=== PATIENT | male | born 1985 | race Caucasian/White ===

== ENCOUNTER 2018-08-29 13:29 | Inpatient (IN) ==
[2018-08-29 14:29] LABS: Albumin 4.4 g/dL (3.5-5.7); Albumin/Globulin Ratio 1.6 (1.1-2.2); Bilirubin,Indirect 0.2 mg/dL (0.0-1.2); Bilirubin,Total 0.2 mg/dL (0.3-1.0); Globulin 2.7 g/dL (2.4-3.5); Total Protein 7.1 g/dL (6.4-8.9)
[2018-08-29 14:30] LABS: Hematocrit 44.5 % (37.5-50.1); Immature Granulocytes % 0.5 % (0-4); Lymphocytes % 8.5 %; Mean Corpuscular HGB Conc 33.7 g/dL (31.6-35.5); Mean Corpuscular Hemoglobin 32.2 pg (28.0-33.3); Mean Corpuscular Volume 95.5 fL (83.0-100.0); Monocytes % 4.5 %; Platelet Count 183 K/mcL (140-400); Red Blood Count 4.66 M/mcL (4.19-5.50); Red Cell Distribution Width 13.8 % (11.5-14.5); Segmented Neutrophils % 85.6 %
[2018-08-29 14:31] LABS: Acetaminophen < 10 mcg/mL (10-20); BUN/Creatinine Ratio 17 (6-26); Basophils % 0.2 %; Blood Urea Nitrogen 14 mg/dL (6-20); Calcium 8.9 mg/dL (8.6-10.3); Carbon Dioxide 28 mEq/L (23-29); Chloride 105 mEq/L (98-107); Eosinophils # 0.1 K/mcL (0.0-0.6); Eosinophils % 0.7 %; Ethanol < 10 mg/dL (Less than 10); Glucose 133 mg/dL (70-105); Lymphocytes # 1.2 K/mcL (0.6-4.6); Monocytes # 0.6 K/mcL (0.0-1.3); Neutrophils # 11.8 K/mcL (1.6-8.9); Osmolality,Calculated 294 (280-300); Potassium 3.6 mEq/L (3.5-5.1); Salicylate < 2.5 mg/dL (15.0-30.0); Sodium 141 mEq/L (136-145); eGFR For Non-African Americans > 60 (> 60)
--- NOTE | 2018-08-29 15:05 | Emergency Department Note ---
Disposition Clinical Impression: Suicidal ideation Disposition: Admitted As Inpatient Condition: Good General Adult HPI - General Chief complaint: ED Overdose Stated complaint: OD/SI Time Seen by Provider: 08/29/18 13:45 Source: EMS Limitations: no limitations - History of Present Illness HPI Narrative: Patient is a 33-year-old gentleman who presents to the emergency department with chief complaint of opiate overdose and suicidal ideation. Patient reports that he has had prior history of opiate abuse and has been stressed out with life and now wishes to end his life. The patient states he took a large amount of heroin today and attempt to kill himself. The patient was found unresponsive and given intranasal Narcan and proceeded to wake up. The patient has been alert since t and has been tearful and saying that he wants to harm himself. Pain Scale: 0 - Related Data Previous Rx's Medication Instructions Recorded Azithromycin [Azithromycin 6-Tab 250 mg PO DAILY #6 tab 06/05/15 Pack] Diphenoxylate/Atropine [Lomotil] 2 each PO QID PRN #8 tablet 06/05/15 Hydrocodone/Acetaminophen [[place] 1 tab PO Q4H PRN #10 tab 06/05/15 5-325 Tablet] Ibuprofen [Motrin] 800 mg PO Q8HR #20 tablet 06/05/15 Azithromycin [Zithromax] 250 mg PO DAILY #6 tablet 12/04/15 Albuterol Sulfate [Albuterol 2 puff IH Q4HR #1 hfa.aer.ad 06/12/16 Inhaler] predniSONE [PredniSONE] 40 mg PO DAILY #8 tablet 06/12/16 Clindamycin HCl [Cleocin HCl] 300 mg PO TID #30 cap 07/26/16 HYDROcodone/Acet 5/325 mg [[place] 1 tab PO Q4H PRN #6 tab 07/26/16 5-325 mg] Ibuprofen [Motrin] 800 mg PO Q6-8H PRN #30 tablet 07/26/16 Mupirocin [Bactroban Oint] 1 appl TP BID #30 g 07/26/16 Albuterol Sulfate [Albuterol 4 puff IH Q4HR PRN #1 puff 01/30/18 Inhaler] predniSONE [PredniSONE] 60 mg PO DAILY 4 Days #12 tablet 01/30/18 Allergies Allergy/AdvReac Type Severity Reaction Status Date / Time Penicillins Allergy Rash Verified 06/12/16 11:55 All systems ED: reviewed and negative except as stated. Past Medical History - Past Medical History Attestation: Yes The following information was validated with the patient. Medical history: Reports: asthma Surgical history: Reports: no surgical history Psychiatric history: Reports: anxiety - Social History Smoking Status: Current every day smoker Smokeless Tobacco Status: Yes Alcohol use: Reports: none Drug use: Reports: marijuana, IV Drug Use Physical Exam General: Conversant and pleasant interactive and nontoxic. Head: Normocephalic/atraumatic Eyes:PERRLA, EOMI, no conjunctivitis Nares: Without d/c. Ears: No erythema or d/c noted. Oralpharnyx: P&MMM noted, Neck: Supple, no JVD or TOOL CRIB CLERK noted. Cardovascular: regular rate and rhythm without murmur, brisk capillary refill, no peripheral edema. Lungs: Clear to ascultation bilaterally, non-labored Abd: Soft nontender, Non Distended, no guarding, no rebound. : Defered Extremities: moves all extremities equally Neuro: AOx3, no obvious gross neuro deficit Psych: Normal Affect Derm: No rash noted - General Limitations: no limitations General appearance: alert, in no apparent distress Course Vital Signs Temperature 98.5 F 08/29/18 13:34 Pulse Rate 112 08/29/18 13:34 Respiratory Rate 20 08/29/18 13:34 Blood Pressure 150/117 08/29/18 13:34 O2 Sat by Pulse Oximetry 98 08/29/18 13:34 Temperature 98.5 F 08/29/18 13:34 Pulse Rate 94 08/29/18 16:39 Respiratory Rate 18 08/29/18 16:39 Blood Pressure 107/71 08/29/18 16:39 O2 Sat by Pulse Oximetry 98 08/29/18 16:39 Oxygen Delivery Oxygen Delivery Room Air Medical Decision Making - MDM Narrative Medical decision making narrative: Patient was seen by Ia and the patient will be admitted for psychiatric care - Lab Data Result diagrams: 08/29/18 13:55 08/29/18 13:55 Lab Results 08/29/18 08/29/18 08/29/18 Range/Units 13:55 13:55 13:55 WBC 13.8 H (4.3-11.1) K/mcL RBC 4.66 (4.19-5.50) M/mcL Hgb 15.0 (12.9-16.9) g/dL Hct 44.5 (37.5-50.1) % MCV 95.5 (83.0-100.0) fL MCH 32.2 (28.0-33.3) pg MCHC 33.7 (31.6-35.5) g/dL RDW 13.8 (11.5-14.5) % Plt Count 183 (140-400) K/mcL MPV 10.0 (9.4-12.4) fL Immature Gran % 0.5 (0-4) % Seg Neutrophils % 85.6 % Lymphocytes % 8.5 % Monocytes % 4.5 % Eosinophils % 0.7 % Basophils % 0.2 % Neutrophils # 11.8 H (1.6-8.9) K/mcL Lymphocytes # 1.2 (0.6-4.6) K/mcL Monocytes # 0.6 (0.0-1.3) K/mcL Eosinophils # 0.1 (0.0-0.6) K/mcL Basophils # 0.0 (0.0-0.2) K/mcL Sodium 141 (136-145) mEq/L Potassium 3.6 (3.5-5.1) mEq/L Chloride 105 (98-107) mEq/L Carbon Dioxide 28 (23-29) mEq/L BUN 14 (6-20) mg/dL Creatinine 0.82 (0.70-1.30) mg/dL Est GFR ( Amer) > 60 (> 60) Est GFR (Non-Af Amer) > 60 (> 60) BUN/Creatinine Ratio 17 (6-26) Glucose 133 H (70-105) mg/dL Calculated Osmolality 294 (280-300) Calcium 8.9 (8.6-10.3) mg/dL Total Bilirubin 0.2 L (0.3-1.0) mg/dL Direct Bilirubin 0.0 (0.0-0.2) mg/dL Indirect Bilirubin 0.2 (0.0-1.2) mg/dL AST 27 (13-39) Units/L ALT 31 (7-52) Units/L Alkaline Phosphatase 80 (34-104) Units/L Serum Total Protein 7.1 (6.4-8.9) g/dL Albumin 4.4 (3.5-5.7) g/dL Globulin 2.7 (2.4-3.5) g/dL Albumin/Globulin Ratio 1.6 (1.1-2.2) Urine Color (Yellow) Urine Clarity (Clear) Urine pH (5.0-8.0) pH Units Ur Specific [place] (1.010-1.025) Urine Protein (Neg-Trace) mg/dL Urine Glucose (UA) (Normal) mg/dL Urine Ketones (Negative) mg/dL Urine Blood (Negative) Urine Nitrite (Negative) Urine Bilirubin (Negative) Urine Urobilinogen (Normal) mg/dL Ur Leukocyte Esterase (Negative) Urine Microscopic RBC (0-3) per hpf Urine Microscopic WBC (0-3) per hpf Ur Squamous Epith Cells (None-Few) per lpf Urine Bacteria (None-Few) per hpf Hyaline Casts (None-Few) per lpf Salicylates < 2.5 L (15.0-30.0) mg/dL Urine Opiates Screen (Tzscoe=654) ng/mL Acetaminophen < 10 L (10-20) mcg/mL Ur Barbiturates Screen (Vkkutp=060) ng/mL Ur Phencyclidine Scrn (Cutoff=25) ng/mL Ur Amphetamines Screen (Wkaklx=6076) ng/mL U Benzodiazepines Scrn (Vumiim=326) ng/mL Urine Cocaine Screen (Cutoff= 300) ng/mL U Marijuana (THC) Screen (Cutoff = 50) ng/mL Ur Drug Screen Interp Ethyl Alcohol < 10 (Less than 10) mg/dL 08/29/18 08/29/18 Range/Units 16:14 16:14 WBC (4.3-11.1) K/mcL RBC (4.19-5.50) M/mcL Hgb (12.9-16.9) g/dL Hct (37.5-50.1) % MCV (83.0-100.0) fL MCH (28.0-33.3) pg MCHC (31.6-35.5) g/dL RDW (11.5-14.5) % Plt Count (140-400) K/mcL MPV (9.4-12.4) fL Immature Gran % (0-4) % Seg Neutrophils % % Lymphocytes % % Monocytes % % Eosinophils % % Basophils % % Neutrophils # (1.6-8.9) K/mcL Lymphocytes # (0.6-4.6) K/mcL Monocytes # (0.0-1.3) K/mcL Eosinophils # (0.0-0.6) K/mcL Basophils # (0.0-0.2) K/mcL Sodium (136-145) mEq/L Potassium (3.5-5.1) mEq/L Chloride (98-107) mEq/L Carbon Dioxide (23-29) mEq/L BUN (6-20) mg/dL Creatinine (0.70-1.30) mg/dL Est GFR ( Amer) (> 60) Est GFR (Non-Af Amer) (> 60) BUN/Creatinine Ratio (6-26) Glucose (70-105) mg/dL Calculated Osmolality (280-300) Calcium (8.6-10.3) mg/dL Total Bilirubin (0.3-1.0) mg/dL Direct Bilirubin (0.0-0.2) mg/dL Indirect Bilirubin (0.0-1.2) mg/dL AST (13-39) Units/L ALT (7-52) Units/L Alkaline Phosphatase (34-104) Units/L Serum Total Protein (6.4-8.9) g/dL Albumin (3.5-5.7) g/dL Globulin (2.4-3.5) g/dL Albumin/Globulin Ratio (1.1-2.2) Urine Color Yellow (Yellow) Urine Clarity Clear (Clear) Urine pH 6.0 (5.0-8.0) pH Units Ur Specific [place] 1.017 (1.010-1.025) Urine Protein 100 H (Neg-Trace) mg/dL Urine Glucose (UA) Normal (Normal) mg/dL Urine Ketones Negative (Negative) mg/dL Urine Blood Negative (Negative) Urine Nitrite Negative (Negative) Urine Bilirubin Negative (Negative) Urine Urobilinogen Normal (Normal) mg/dL Ur Leukocyte Esterase Negative (Negative) Urine Microscopic RBC 3-5 H (0-3) per hpf Urine Microscopic WBC 15-30 H (0-3) per hpf Ur Squamous Epith Cells Many H (None-Few) per lpf Urine Bacteria None Seen (None-Few) per hpf Hyaline Casts None Seen (None-Few) per lpf Salicylates (15.0-30.0) mg/dL Urine Opiates Screen Positive H (Snowge=598) ng/mL Acetaminophen (10-20) mcg/mL Ur Barbiturates Screen Negative (Owivac=028) ng/mL Ur Phencyclidine Scrn Negative (Cutoff=25) ng/mL Ur Amphetamines Screen Negative (Icfrsw=1854) ng/mL U Benzodiazepines Scrn Negative (Yvsair=399) ng/mL Urine Cocaine Screen Negative (Cutoff= 300) ng/mL U Marijuana (THC) Screen Positive H (Cutoff = 50) ng/mL Ur Drug Screen Interp See Below Ethyl Alcohol (Less than 10) mg/dL
[2018-08-29 16:26] LABS: Bilirubin,Urine Negative (Negative); Blood,Urine Negative (Negative); Clarity,Urine Clear (Clear); Color,Urine Yellow (Yellow); Glucose,Urine (UA) Normal (Normal); Ketones,Urine Negative (Negative); Leukocyte Esterase,Urine Negative (Negative); Nitrite,Urine Negative (Negative); Protein,Urine 100 mg/dL (Neg-Trace); Specific Gravity,Urine 1.017 (1.010-1.025); Urobilinogen,Urine Normal (Normal)
[2018-08-29 16:29] LABS: Bacteria,Urine None Seen per hpf (None-Few); Hyaline Casts,Urine None Seen per lpf (None-Few); Squamous Epithelial Cell,Urine Many per lpf (None-Few); WBC,Urine 15-30 per hpf (0-3)
[2018-08-29 16:42] LABS: Amphetamine Screen,Urine Negative ng/mL (Cutoff=1000); Barbiturate Screen,Urine Negative ng/mL (Cutoff=200); Benzodiazepines Screen,Urine Negative ng/mL (Cutoff=200); Cannabinoid Screen,Urine Positive ng/mL (Cutoff = 50); Cocaine Screen,Urine Negative ng/mL (Cutoff= 300); Opiate Screen,Urine Positive ng/mL (Cutoff=300); Phencyclidine Screen,Urine Negative ng/mL (Cutoff=25)
[2018-08-29] MEDS ORDERED: *HR* LORazepam 1 MG TABLET PO PRN (18:52)
[2018-08-29] MEDS ORDERED: *HR* LORazepam 2 MG/ML VIAL IM PRN (18:52)
[2018-08-29] MEDS ORDERED: traZODone 50 MG TABLET PO PRN (18:52)
[2018-08-29] MEDS ORDERED: Mag Hydrox/Al Hydrox/Simeth 30 ML UDC PO PRN (18:52)
[2018-08-29] MEDS ORDERED: Ibuprofen 400 MG TABLET PO PRN (18:52)
[2018-08-29] MEDS ORDERED: Haloperidol Lactate 5 MG/ML VIAL IM PRN (18:52)
[2018-08-29] MEDS ORDERED: MOM Conc 10 ML UD.LIQ PO PRN (18:52)
[2018-08-29] MEDS: Nicotine 21 MG PATCH.TD24 TD SCH (22:19)
--- NOTE | 2018-08-30 08:25 | Psychiatry History & Physical ---
Date of Encounter: 08/30/18 Time of Encounter: 08:16 History of Present Illness Patient Stated Chief Complaint: I tried to kill myself Medicare Admission Attestation: For traditional Medicare patients the provided hospital inpatient services are reasonable and necessary and in the case of services not specified as inpatient-only under 42 CFR 419.22 (n), that they are appropriately provided as inpatient services in accordance 42 CFR 412.3. For Critical Access Hospital the patient may reasonably be expected to be discharged or transferred to a hospital within 96 hours after admission to the Critical Access Hospital. Admitted From: Emergency Dept Plans for Post Hospital Care: Home History of Present Illness: Mr. Frost is a 33 year old male who presented to the emergency department with chief complaint of opiate overdose and suicidal ideation. Patient reports that he has had prior history of opiate abuse and has been stressed out with life and now wishes to end his life. The patient states he took a large amount of heroin today and attempt to kill himself. The patient was found unresponsive and given intranasal Narcan and proceeded to wake up. The patient has been alert since then and has been tearful and saying that he wants to harm himself. This morning he continues to feel depressed but reports that he regrets his suicide attempt yesterday. He reports feeling hopeless with no energy and lack of interests. Poor concentration and decreased appetite and poor sleep. He denies current or pas manic symptoms. No psychotic symptoms. Past Med Surg Social Fam HX - Past Medical History Medical history: asthma - Past Psychiatric History Psychiatric history: Reports: depression. Denies: prior suicide attempt, previous psychiatric hospitalization Past psychiatric history details: Patient has never had a suicide attempt in the past. No prior psychiatric hospitalizations. He is not linked with outpatient services. He was started on 10 mg of Lexapro by his work doctor about a year ago and feels it has helped him somewhat. Family psychiatric history: Yes Family Psychiatric History Details: Reports his sister and mother have depression. As there is some substance in the family but did not want to give more details. Family History of Suicide: None - Past Surgical History Surgical History: appendectomy - Social History Smoking Status: Current every day smoker Packs per day: 1 Smokeless Tobacco Status: Yes Alcohol use: none Drug use: marijuana, IV Drug Use Additional substance use detail: He reports that he was using pain pills and then 6 months ago switched to IV heroin. He said he was buying $20 worth several times a week. He says he gets opiates 6 when he does not take it and reports nausea vomiting diarrhea and chills. He reports smoking cannabis nightly. He denies alcohol. Occupational status: employed Current living situation: Home, With Family Activity Level: Independent ambulation Recent Out of Country Travel Within the Last 8 Weeks: No Exposure or Possible Exposure to Illness During Travel: No Additional social history: Patient lives with his mother and grandfather. He says this is a good living situation. He works at a [employer] second shift. He has never been he has no children. Medications & Allergies Azithromycin [Azithromycin 6-Tab Pack] 250 mg PO DAILY #6 tab 06/05/15 [Rx] Diphenoxylate/Atropine [Lomotil] 2 each PO QID PRN #8 tablet 06/05/15 [Rx] Hydrocodone/Acetaminophen [[place] 5-325 Tablet] 1 tab PO Q4H PRN #10 tab 06/05/15 [Rx] Ibuprofen [Motrin] 800 mg PO Q8HR #20 tablet 06/05/15 [Rx] Azithromycin [Zithromax] 250 mg PO DAILY #6 tablet 12/04/15 [Rx] Albuterol Sulfate [Albuterol Inhaler] 2 puff IH Q4HR #1 hfa.aer.ad 06/12/16 [Rx] predniSONE [PredniSONE] 40 mg PO DAILY #8 tablet 06/12/16 [Rx] Clindamycin HCl [Cleocin HCl] 300 mg PO TID #30 cap 07/26/16 [Rx] HYDROcodone/Acet 5/325 mg [[place] 5-325 mg] 1 tab PO Q4H PRN #6 tab 07/26/16 [Rx] Ibuprofen [Motrin] 800 mg PO Q6-8H PRN #30 tablet 07/26/16 [Rx] Mupirocin [Bactroban Oint] 1 appl TP BID #30 g 07/26/16 [Rx] Albuterol Sulfate [Albuterol Inhaler] 4 puff IH Q4HR PRN #1 puff 01/30/18 [Rx] predniSONE [PredniSONE] 60 mg PO DAILY 4 Days #12 tablet 01/30/18 [Rx] Allergy/AdvReac Type Severity Reaction Status Date / Time Penicillins Allergy Rash Verified 06/12/16 11:55 Review of Systems Constitutional: Denies: fever Eyes: Denies: eye pain Ears, Nose, Throat: Denies: ear pain Cardiovascular: Denies: chest pain Respiratory: Denies: cough Gastrointestinal: Denies: abdominal pain Genitourinary male: Denies: urgency Musculoskeletal: Reports: joint pain Integumentary: Denies: rash Neurological: Denies: headache Psychiatric: Reports: depression, abnormal sleep pattern, suicidal ideation, difficulty concentrating, hopelessness. Denies: homicidal ideation, auditory hallucinations, visual hallucinations Endocrine: Reports: fatigue Hematologic/Lymphatic: Denies: easy bleeding Allergic/Immunologic: Denies: facial swelling Exam - HEENT Head exam IM: Present: atraumatic Eye exam IM: Present: EOMI ENT exam IM: Present: mucous membranes moist - Neurological Neurological exam: Present: CN II-XII intact (Grossly) - Respiratory Respiratory exam IM: Absent: respiratory distress - GI/Abdominal GI/Abdominal exam IM: Present: no peritoneal signs - Extremities Extremities exam IM: Present: full ROM - Skin Skin exam IM: Absent: cyanosis - Constitutional Vitals: Temp Pulse Resp BP Pulse Ox 98.5 F 106 16 141/88 100 08/29/18 20:55 08/29/18 20:55 08/29/18 20:55 08/29/18 20:55 08/29/18 20:55 General appearance: age & developmentally appropriate, disheveled - Musculoskeletal Gait: slow Station: stooped Strength & Tone: normal for patient - Psychiatric Patient Orientation: Yes Person, Yes Time, Yes Place Level of alertness: Alert Behavior: cooperative Psychomotor activity: Normal Eye Contact: Maintains Eye Contact Mood Description: Depressed Patient description of mood: "Sad" Affect description: dysphoric Speech Volume: Soft/Quiet Speech pattern: slowed Language & Vocabulary: consistent with education Thought Process: Intact Thought Content: Yes Suicidal ideation (Currently denies suicidal ideation and r egrets yesterday's attempt.), No Homicidal ideation Perceptual Disturbances: No Auditory hallucinations, No Visual hallucinations Attention Span Ability: Capable of Focused Attention Memory Description: Grossly Intact Patient Reliability: Reliable Historian Fund of knowledge: Yes abstraction ability, Yes average, Yes aware of current events Intelligence Estimate: Average Judgment: Limited Insight: Partial Results - Drug Levels and Toxicology Drug Levels and Toxicology: Drug Levels and Toxicity 08/29/18 08/29/18 13:55 16:14 Urine Opiates Screen Positive H Acetaminophen < 10 L Ur Barbiturates Screen Negative Ur Phencyclidine Scrn Negative Ur Amphetamines Screen Negative U Benzodiazepines Scrn Negative Urine Cocaine Screen Negative U Marijuana (THC) Screen Positive H Ethyl Alcohol < 10 Short CBC 08/29/18 Range/Units 13:55 WBC 13.8 H (4.3-11.1) K/mcL Hgb 15.0 (12.9-16.9) g/dL Hct 44.5 (37.5-50.1) % Plt Count 183 (140-400) K/mcL Neutrophils # 11.8 H (1.6-8.9) K/mcL BMP 08/29/18 Range/Units 13:55 Sodium 141 (136-145) mEq/L Potassium 3.6 (3.5-5.1) mEq/L Chloride 105 (98-107) mEq/L Carbon Dioxide 28 (23-29) mEq/L BUN 14 (6-20) mg/dL Creatinine 0.82 (0.70-1.30) mg/dL Glucose 133 H (70-105) mg/dL Calcium 8.9 (8.6-10.3) mg/dL Liver Function 08/29/18 Range/Units 13:55 Total Bilirubin 0.2 L (0.3-1.0) mg/dL Direct Bilirubin 0.0 (0.0-0.2) mg/dL AST 27 (13-39) Units/L ALT 31 (7-52) Units/L Alkaline Phosphatase 80 (34-104) Units/L Albumin 4.4 (3.5-5.7) g/dL Urine 08/29/18 Range/Units 16:14 Urine Color Yellow (Yellow) Urine Clarity Clear (Clear) Urine pH 6.0 (5.0-8.0) pH Units Ur Specific [place] 1.017 (1.010-1.025) Urine Protein 100 H (Neg-Trace) mg/dL Urine Glucose (UA) Normal (Normal) mg/dL - Labs Labs: Laboratory Last Values WBC 13.8 K/mcL (4.3-11.1) H 08/29/18 13:55 RBC 4.66 M/mcL (4.19-5.50) 08/29/18 13:55 Hgb 15.0 g/dL (12.9-16.9) 08/29/18 13:55 Hct 44.5 % (37.5-50.1) 08/29/18 13:55 MCV 95.5 fL (83.0-100.0) 08/29/18 13:55 MCH 32.2 pg (28.0-33.3) 08/29/18 13:55 MCHC 33.7 g/dL (31.6-35.5) 08/29/18 13:55 RDW 13.8 % (11.5-14.5) 08/29/18 13:55 Plt Count 183 K/mcL (140-400) 08/29/18 13:55 MPV 10.0 fL (9.4-12.4) 08/29/18 13:55 Immature Gran % 0.5 % (0-4) 08/29/18 13:55 Seg Neutrophils % 85.6 % 08/29/18 13:55 8.5 % 08/29/18 13:55 4.5 % 08/29/18 13:55 0.7 % 08/29/18 13:55 0.2 % 08/29/18 13:55 11.8 K/mcL (1.6-8.9) H 08/29/18 13:55 1.2 K/mcL (0.6-4.6) 08/29/18 13:55 0.6 K/mcL (0.0-1.3) 08/29/18 13:55 0.1 K/mcL (0.0-0.6) 08/29/18 13:55 0.0 K/mcL (0.0-0.2) 08/29/18 13:55 Sodium 141 mEq/L (136-145) 08/29/18 13:55 Potassium 3.6 mEq/L (3.5-5.1) 08/29/18 13:55 Chloride 105 mEq/L (98-107) 08/29/18 13:55 Carbon Dioxide 28 mEq/L (23-29) 08/29/18 13:55 BUN 14 mg/dL (6-20) 08/29/18 13:55 0.82 mg/dL (0.70-1.30) 08/29/18 13:55 Est GFR ( Amer) > 60 (> 60) 08/29/18 13:55 Est GFR (Non-Af Amer) > 60 (> 60) 08/29/18 13:55 17 (6-26) 08/29/18 13:55 Glucose 133 mg/dL (70-105) H 08/29/18 13:55 294 (280-300) 08/29/18 13:55 Calcium 8.9 mg/dL (8.6-10.3) 08/29/18 13:55 0.2 mg/dL (0.3-1.0) L 08/29/18 13:55 0.0 mg/dL (0.0-0.2) 08/29/18 13:55 0.2 mg/dL (0.0-1.2) 08/29/18 13:55 AST 27 Units/L (13-39) 08/29/18 13:55 ALT 31 Units/L (7-52) 08/29/18 13:55 80 Units/L (34-104) 08/29/18 13:55 7.1 g/dL (6.4-8.9) 08/29/18 13:55 4.4 g/dL (3.5-5.7) 08/29/18 13:55 2.7 g/dL (2.4-3.5) 08/29/18 13:55 1.6 (1.1-2.2) 08/29/18 13:55 Yellow (Yellow) 08/29/18 16:14 Clear (Clear) 08/29/18 16:14 6.0 pH Units (5.0-8.0) 08/29/18 16:14 Ur Specific [place] 1.017 (1.010-1.025) 08/29/18 16:14 100 mg/dL (Neg-Trace) H 08/29/18 16:14 Normal mg/dL (Normal) 08/29/18 16:14 Negative mg/dL (Negative) 08/29/18 16:14 Negative (Negative) 08/29/18 16:14 Negative (Negative) 08/29/18 16:14 Negative (Negative) 08/29/18 16:14 Normal mg/dL (Normal) 08/29/18 16:14 Ur Leukocyte Esterase Negative (Negative) 08/29/18 16:14 3-5 per hpf (0-3) H 08/29/18 16:14 15-30 per hpf (0-3) H 08/29/18 16:14 Ur Squamous Epith Cells Many per lpf (None-Few) H 08/29/18 16:14 None Seen per hpf (None-Few) 08/29/18 16:14 Hyaline Casts None Seen per lpf (None-Few) 08/29/18 16:14 Salicylates < 2.5 mg/dL (15.0-30.0) L 08/29/18 13:55 Positive ng/mL (Rjducw=601) H 08/29/18 16:14 Acetaminophen < 10 mcg/mL (10-20) L 08/29/18 13:55 Ur Barbiturates Screen Negative ng/mL (Qszurf=198) 08/29/18 16:14 Ur Phencyclidine Scrn Negative ng/mL (Cutoff=25) 08/29/18 16:14 Ur Amphetamines Screen Negative ng/mL (Ylxwzk=4489) 08/29/18 16:14 U Benzodiazepines Scrn Negative ng/mL (Acvkir=366) 08/29/18 16:14 Negative ng/mL (Cutoff= 300) 08/29/18 16:14 U Marijuana (THC) Screen Positive ng/mL (Cutoff = 50) H 08/29/18 16:14 Ur Drug Screen Interp See Below 08/29/18 16:14 Ethyl Alcohol < 10 mg/dL (Less than 10) 08/29/18 13:55 Assessment and Plan (1) Depression Current visit: Yes Status: Acute Plan: Admit inpatient for safety and stabilization, Close observation, Suicide Precautions per unit protocol, Encourage participation in unit milieu, Group Therapy, Monitor sleep, Monitor appetite Additional Plan: increase lexapro 20mg qam for depression, encourage groups. Reviewed Interval hx Review any current labs Pt had an opportunity to ask questions and discuss current treatment plan. Supportive therapy was provided Pt encouraged to consider group or individual therapy Pt was in agreement with treatment plan. Pt was educated on the risks benefits and side effects of current medications and alternatives as well as the risks and benefits of no medication. AIMS = 0 Risks, benefits, side effects, alternatives discussed w/pt: Yes Patient agreeable to treatment: Yes Plans for Post Hospital Care: Home Estimated Length of Stay (Days): 3 Qualifiers: Depression Type: major depressive disorder Major depression recurrence: recurrent Active/Remission status: currently active Major depression episode severity: severe Psychotic features: without psychotic features Qualified Code(s): F33.2 - Major depressive disorder, recurrent severe without psychotic features
[2018-08-30] MEDS: Nicotine 21 MG PATCH.TD24 TD SCH (08:57)
--- NOTE | 2018-08-30 11:19 | Electrocardiograph Report ---
[address] [address] Test Date: 2018-08-29 Pat Name: Rober Frost Department: [id number] Room: 1A45 Gender: M Penciller: : 1985 Requested By: Lee Katz Order Number: [id number] Reading MD: Grace Luu Measurements Intervals [place] Rate: 117 P: 76 AK: 122 QRS: 67 QRSD: 101 T: 37 QT: 319 QTc: 445 Interpretive Statements Sinus tachycardia Low voltage, precordial leads Probable anteroseptal infarct, old Electronically Signed On 08-30-2018 11:18:02 EDT by Grace Luu
--- NOTE | 2018-08-31 06:58 | Psychiatry Progress Note ---
Date of Encounter: 08/31/18 Time of Encounter: 06:57 Subjective Interval history: Patient having some withdrawal symptoms including some nausea and chills and sweats. He reports ongoing depression. He is motivated towards getting into a Suboxone program and wants to get back to work. He denies current suicidal ideations. Review of Systems Psychiatric: Reports: depression, abnormal sleep pattern, difficulty concentrating, hopelessness. Denies: homicidal ideation, auditory hallucinations, visual hallucinations Results - Vital Signs Vital Signs: Temp Pulse Resp BP Pulse Ox 98.9 F 91 14 150/100 99 08/30/18 21:00 08/30/18 21:00 08/30/18 21:00 08/30/18 21:00 08/30/18 21:00 Assessment and Plan (1) Depression Current visit: Yes Status: Acute Plan: Continue hospitalization, Close observation, Suicide Precautions per unit protocol, Encourage participation in unit milieu, Group Therapy, Monitor sleep, Monitor appetite Additional Plan: Continue medications. Tolerating increase Lexapro. Encourage group therapy. Supportive therapy. Risks, benefits, side effects, alternatives discussed w/pt: Yes Patient agreeable to treatment: Yes Qualifiers: Depression Type: major depressive disorder Major depression recurrence: recurrent Active/Remission status: currently active Major depression episode severity: severe Psychotic features: without psychotic features Qualified Code(s): F33.2 - Major depressive disorder, recurrent severe without psychotic features Consult Discharge Plan - Plan Referrals: NONE,PCP [Primary Care Provider] - Psychiatry Exam - Constitutional Vitals: Temp Pulse Resp BP Pulse Ox 98.9 F 91 14 150/100 99 08/30/18 21:00 08/30/18 21:00 08/30/18 21:00 08/30/18 21:00 08/30/18 21:00 General appearance: age & developmentally appropriate, well-groomed, well- nourished - Musculoskeletal Gait: normal Station: relaxed Strength & Tone: normal for patient - Psychiatric Patient Orientation: Yes Person, Yes Time, Yes Place Level of alertness: Alert Behavior: calm, cooperative Psychomotor activity: Normal Eye Contact: Maintains Eye Contact Mood Description: Depressed Patient description of mood: a little better Affect description: dysphoric Speech Volume: Normal Speech pattern: normal rate, normal rhythm, normal tone, fluent, spontaneous Language & Vocabulary: consistent with education Thought Process: Linear, Goal Oriented Thought Content: No Suicidal ideation, No Homicidal ideation, No Overt delusions Perceptual Disturbances: No Auditory hallucinations, No Visual hallucinations Attention Span Ability: Capable of Focused Attention Memory Description: Grossly Intact Patient Reliability: Reliable Historian Fund of knowledge: Yes abstraction ability, Yes aware of current events Intelligence Estimate: Average Judgment: Fair Insight: Partial
[2018-08-31] MEDS: Nicotine 21 MG PATCH.TD24 TD SCH (12:11)
[2018-08-31] MEDS: hydrOXYzine pamoate 25 MG CAPSULE PO PRN ×2 (12:12→21:40)
[2018-08-31] MEDS: cloNIDine HCl 0.1 MG TABLET PO PRN ×2 (14:26→21:43)
[2018-09-01] MEDS: Nicotine 21 MG PATCH.TD24 TD SCH (08:49)
[2018-09-01 09:49] VITALS: BP 128/88
--- NOTE | 2018-09-01 19:10 | Discharge Summary ---
Date of Encounter: 09/01/18 Time of Encounter: 19:07 Diagnosis - Discharge Diagnosis (1) Major depress dis, severe Status: Acute (2) Opiate dependence Status: Acute Qualifiers: Substance use status: uncomplicated Qualified Code(s): F11.20 - Opioid dependence, uncomplicated Medications - Discharge Medications Prescriptions: Escitalopram [Lexapro] 20 mg PO DAILY #60 tablet Fexofenadine/Pseudoephedrine [Ayry-D 24 Hour Tablet] 1 tab PO DAILY 08/30/18 [History] Escitalopram [Lexapro] 20 mg PO DAILY #60 tablet 09/01/18 [Rx] Allergy/AdvReac Type Severity Reaction Status Date / Time Penicillins Allergy Rash Verified 08/30/18 10:49 Results Procedures and tests throughout hospitalization: Completed Lab Orders Category Date Time Status Acetaminophen Stat Lab 08/29/18 13:55 Completed Basic Metabolic Panel Stat Lab 08/29/18 13:55 Completed Complete Blood Count [HEME] Stat Lab 08/29/18 13:55 Completed Drug Screen, Urine [UCHEM] Stat Lab 08/29/18 16:14 Completed Ethanol Stat Lab 08/29/18 13:55 Completed Hepatic Panel Stat Lab 08/29/18 13:55 Completed Salicylate Stat Lab 08/29/18 13:55 Completed Urinalysis reflex Microscopic [URIN] Stat Lab 08/29/18 16:14 Completed Provider Date of admission: 08/29/18 17:56 Primary care physician: PCP NONE Discharging clinician: Eugenia Do Psychiatry Exam - Constitutional Vitals: Temp Pulse Resp BP Pulse Ox 98.3 F 90 20 128/88 98 09/01/18 09:00 09/01/18 09:00 09/01/18 09:00 09/01/18 09:00 09/01/18 09:00 General appearance: age & developmentally appropriate, well-groomed, well- nourished - Musculoskeletal Gait: normal Station: relaxed Strength & Tone: normal for patient - Psychiatric Patient Orientation: Yes Person, Yes Time, Yes Place Level of alertness: Alert Behavior: calm, cooperative Psychomotor activity: Normal Eye Contact: Maintains Eye Contact Mood Description: Depressed Affect description: congruent with mood Speech Volume: Normal Speech pattern: normal rate, normal rhythm, normal tone, fluent, spontaneous Language & Vocabulary: consistent with education Thought Process: Linear, Goal Oriented Thought Content: No Suicidal ideation, No Homicidal ideation, No Overt delusions Perceptual Disturbances: No Auditory hallucinations, No Visual hallucinations Attention Span Ability: Capable of Focused Attention Memory Description: Grossly Intact Patient Reliability: Reliable Historian Fund of knowledge: Yes abstraction ability, Yes aware of current events Intelligence Estimate: Average Judgment: Limited Insight: Partial Hospital Course Hospital course: Mr. Frost is a 33 year old male who was admitted following an opiate overdose that responded to Narcan. Client admitted that he has been depressed but denied he wanted to . Initially presented with some SI but client reports his OD was accidental. Has been opiate dependent for some time. Trying to get himself off opiates by buying Suboxone off the street. Has been doing this for approx six months. However, when stressed he has been using heroin and reports lately he has been using heroin every five days. Wants help stopping. Willing to do a Suboxone program. Also willing to consider Naltrexone/Vivitrol but last use too recent to start these meds. Willing to follow up on outpatient recommendations/referrals. Takes Lexapro from provider at his work (works at the [employer]). Work is important to him and client eager to return to work. Lexapro increased this hospitalization with good clinical results. Today client is denying SI, intent, or plan. Future oriented. Lives with mother and this parts data writer spoke with her. She is comfortable having client return to her home and will keep an eye on him. She was educated on the dangers of accidental opiate overdose. This parts data writer also spoke with social services counselor and he will try and get a TERESA kit or some kind of opiate overdose rescue kit to send home with client. Suspect he can get into [facility] within the next few days for treatment. Client denying any distressing withdrawal symptoms and denies intention of using again. Feels he is safe for discharge. Total time spent with client greater than 30 minutes. Patient was educated of his diagnosis and the risks, benefits, and side effects of this treatment and alternative treatment options and was monitored for responsiveness and side effects. Mood, anxiety, sleep, appetite, and interest improved, as did future orientation. Self-harm thoughts subsided, thinking cleared, psychosis resolved, and mood stabilized. Patient was able to attend both individual and group therapy sessions as well as meeting with the psychiatrist daily and urged to discuss any medication or treatment issues or other concerns. The patient was educated primarily by verbal means about their diagnosis and manifestations in their life. The option for treatment including group and individual therapy programming was offered to the patient in the use of medications with all their potential risks, benefits, and side effects were discussed with the patient at length. The patient was given the opportunity to ask questions and was noted to participate in the treatment in the planning process. The patient felt ready and eager to be discharged from the inpatient psychiatric unit to continue on with treatment as an outpatient. The patient agreed that he is safe for this disposition. The patient was considered to be able to participate in informed consent and decision making with respect to medical, legal, and financial issues of the time of discharge. At the time of discharge the patient adamantly denied any concerns for lethality including suicidal or homicidal thoughts ideations or plans and was future oriented toward ongoing mental health care, medical follow-up and sobriety. - Time Spent with Patient Total time spent providing and/or coordinating discharge services: Assessment and Plan - Patient/Caregiver Discharge Instructions Activity: resume usual activities as tolerated Diet: low fat, low cholesterol - Follow up Plan Follow up with: [facility] [Other] - 09/04/18 8:00 am (You have indicated that you are interested in receiving addiction counseling services. [facility] offers a wide variety of services including medication assisted therapies, group and individual counseling, and case management services. [facility] has been contacted and an induction appointment has been scheduled for September 04 at 8:00 AM. Please note that [facility] prefers that you do not use any substances for at least 24 hours before your assessment. Please be sure to bring a valid photo ID or passport (if you do not have either of these, you must bring two items to confirm your identity such as mail with your name or address, discharge paperwork from a hospital, medication bottles or packages, library card or credit card showing your name, etc.) You will meet with several providers during the induction meeting so please plan to be there for the majority of the day. [facility] recommends you bring a packed lunch just in case you are there all day. Please be aware that no children are permitted at [facility] and anyone who comes with you, or to visit you, must wait in the lobby area. If you need to reschedule your induction appointment or have any questions about their program, please do not hesitate to contact [facility] at . ) Overall status at discharge: Stable Disposition: Home, Self-Care Quality - Multiple Antipsychotics Patient discharged on 2 or more antipsychotic medications: No Procedures - Procedures Procedures: Medication Management, Crisis Stabilization, Supportive Therapy, Group Therapy
== END 2018-09-01 14:52 | disposition home or self-care (01) | DRG 918 ==
LOC: EMEROOARM 13:29 → 1ANU 17:56
PROVIDERS: ADMIT Psychiatry & Neurology Psychiatry; ATTEND Psychiatry & Neurology Psychiatry